=== PATIENT | female | born 1965 ===

== ENCOUNTER 2022-09-12 08:28 | Outpatient (CLI) | payer OTHER | END 2022-09-12 08:31 | disposition home or self-care (01) | LOC: SONOGRAMA 08:28 | PROVIDERS: ATTEND Pathology Anatomic Pathology & Clinical Pathology | DX: D34 Benign neoplasm of thyroid gland (principal); E03.9 Hypothyroidism, unspecified; E04.2 Nontoxic multinodular goiter ==